=== PATIENT | female | born 1950 | race Caucasian/White ===

== ENCOUNTER 2017-11-27 17:13 | Inpatient (IN) | payer OTHER, BC ==
[2017-11-27] MEDS: ASPIRIN CHEWABLE 81 MG TABLET. PO ×2 (17:45→18:00)
[2017-11-27 18:00] LABS: ADD MAN DIFF? NO
[2017-11-27 18:10] LABS: BASO # 0.1 x10^3/uL (0.0-0.2); BASO % 1 % (0-3); EOS # 0.3 x10^3/uL (0.0-0.7); EOS % 4 % (0-3); HEMATOCRIT 42.7 % (36.0-47.0); HEMOGLOBIN 14.2 g/dL (12.0-15.5); LYMPH # 2.7 x10^3/uL (1.0-4.8); LYMPH % 39 % (24-48); MEAN CORPUSCULAR HEMOGLOBIN 32 pg (25-35); MEAN CORPUSCULAR HGB CONC 33 g/dL (31-37); MEAN CORPUSCULAR VOLUME 97 fL (79-100); MONO # 0.5 x10^3/uL (0.0-1.1); MONO % 7 % (0-9); NEUT # 3.4 x10^3uL (1.8-7.7); NEUT % 49 % (31-73); PLATELET COUNT 342 x10^3/uL (140-400); RED BLOOD COUNT 4.42 x10^6/uL (3.50-5.40); RED CELL DISTRIBUTION WIDTH 13.7 % (11.5-14.5); WHITE BLOOD COUNT 6.9 x10^3/uL (4.0-11.0)
[2017-11-27 19:08] LABS: ANION GAP 10 (6-14); BLOOD UREA NITROGEN 18 mg/dL (7-20); BUN/CREATININE RATIO 16 (6-20); CALCIUM 9.2 mg/dL (8.5-10.1); CARBON DIOXIDE 26 mmol/L (21-32); CHLORIDE 108 mmol/L (98-107); CREATININE 1.1 mg/dL (0.6-1.0); GFR 49.7; GLUCOSE 105 mg/dL (70-99); POTASSIUM 4.5 mmol/L (3.5-5.1); SODIUM 144 mmol/L (136-145)
[2017-11-27 19:13] LABS: ALBUMIN 3.5 g/dL (3.4-5.0); ALBUMIN/GLOBULIN RATIO 0.9 (1.0-1.7); ALK PHOS 67 U/L (46-116); ALT (SGPT) 12 U/L (14-59); AST (SGOT) 15 U/L (15-37); TOTAL BILIRUBIN 0.2 mg/dL (0.2-1.0); TOTAL PROTEIN 7.3 g/dL (6.4-8.2)
[2017-11-27 19:13] LABS: TROPONINI < 0.017 ng/mL (0.000-0.055)
[2017-11-27 19:32] LABS: NT-PRO BNP 105 pg/mL (0-124)
[2017-11-27] MEDS ORDERED: ONDANSETRON PF 4 MG/2 ML VIAL. IV (21:15)
[2017-11-27] MEDS ORDERED: KETOROLAC 30 MG/ML INJ. IV (21:15)
[2017-11-27] MEDS: ATORVASTATIN CALCIUM 10 MG TABLET. PO (23:43)
[2017-11-28 08:24] LABS: TROPONINI < 0.017 ng/mL (0.000-0.055)
[2017-11-28] MEDS: metFORMIN 500 MG TABLET PO ×2 (08:56→18:07)
[2017-11-28] MEDS: LOSARTAN POTASSIUM 50 MG TABLET. PO (08:56)
[2017-11-28] MEDS: FLU VACC QS2017-18 (36MOS+)/PF 0.5 ML SYRINGE. VAX IM (08:58)
[2017-11-28] MEDS ORDERED: INFLUENZA VAX SCREEN BY RX. MC (09:00)
[2017-11-28 10:17] LABS: ADD MAN DIFF? NO
[2017-11-28 10:31] LABS: ALBUMIN 3.1 g/dL (3.4-5.0); ALK PHOS 55 U/L (46-116); ALT (SGPT) 11 U/L (14-59); ANION GAP 8 (6-14); AST (SGOT) 12 U/L (15-37); BLOOD UREA NITROGEN 17 mg/dL (7-20); BUN/CREATININE RATIO 17 (6-20); CALCIUM 8.5 mg/dL (8.5-10.1); CARBON DIOXIDE 26 mmol/L (21-32); CHLORIDE 109 mmol/L (98-107); GFR 55.5; GLUCOSE 108 mg/dL (70-99); POTASSIUM 4.7 mmol/L (3.5-5.1); SODIUM 143 mmol/L (136-145); TOTAL BILIRUBIN 0.3 mg/dL (0.2-1.0); TOTAL PROTEIN 6.2 g/dL (6.4-8.2)
[2017-11-28 10:32] LABS: BASO % 1 % (0-3); EOS # 0.3 x10^3/uL (0.0-0.7); EOS % 7 % (0-3); HEMATOCRIT 38.1 % (36.0-47.0); HEMOGLOBIN 12.5 g/dL (12.0-15.5); LYMPH # 1.8 x10^3/uL (1.0-4.8); LYMPH % 39 % (24-48); MEAN CORPUSCULAR HEMOGLOBIN 32 pg (25-35); MEAN CORPUSCULAR HGB CONC 33 g/dL (31-37); MEAN CORPUSCULAR VOLUME 96 fL (79-100); MONO # 0.4 x10^3/uL (0.0-1.1); MONO % 8 % (0-9); NEUT # 2.1 x10^3uL (1.8-7.7); NEUT % 45 % (31-73); PLATELET COUNT 286 x10^3/uL (140-400); RED BLOOD COUNT 3.96 x10^6/uL (3.50-5.40); RED CELL DISTRIBUTION WIDTH 13.3 % (11.5-14.5); WHITE BLOOD COUNT 4.6 x10^3/uL (4.0-11.0)
[2017-11-28] MEDS: ASPIRIN ENTERIC COATED 325 MG TABLET.DR. PO (18:07)
[2017-11-28] MEDS: ATORVASTATIN CALCIUM 10 MG TABLET. PO (20:58)
[2017-11-28] MEDS ORDERED: NON FORMULARY ITEM (Lovastatin 20 MG) PO (21:00)
[2017-11-28 21:07] LABS: POC GLUCOSE 155 mg/dL (70-99)
[2017-11-29 05:58] LABS: ADD MAN DIFF? NO
[2017-11-29 06:04] LABS: BASO % 1 % (0-3); EOS # 0.3 x10^3/uL (0.0-0.7); EOS % 6 % (0-3); HEMATOCRIT 37.4 % (36.0-47.0); HEMOGLOBIN 12.1 g/dL (12.0-15.5); LYMPH # 2.2 x10^3/uL (1.0-4.8); LYMPH % 37 % (24-48); MEAN CORPUSCULAR HEMOGLOBIN 31 pg (25-35); MEAN CORPUSCULAR HGB CONC 32 g/dL (31-37); MEAN CORPUSCULAR VOLUME 97 fL (79-100); MONO # 0.6 x10^3/uL (0.0-1.1); MONO % 10 % (0-9); NEUT # 2.7 x10^3uL (1.8-7.7); NEUT % 46 % (31-73); PLATELET COUNT 268 x10^3/uL (140-400); RED BLOOD COUNT 3.88 x10^6/uL (3.50-5.40); RED CELL DISTRIBUTION WIDTH 13.5 % (11.5-14.5); WHITE BLOOD COUNT 5.8 x10^3/uL (4.0-11.0)
[2017-11-29 06:44] LABS: ALBUMIN/GLOBULIN RATIO 0.9 (1.0-1.7); ALK PHOS 58 U/L (46-116); ALT (SGPT) 10 U/L (14-59); ANION GAP 7 (6-14); AST (SGOT) 8 U/L (15-37); BLOOD UREA NITROGEN 20 mg/dL (7-20); BUN/CREATININE RATIO 20 (6-20); CALCIUM 8.7 mg/dL (8.5-10.1); CARBON DIOXIDE 27 mmol/L (21-32); CHLORIDE 110 mmol/L (98-107); GFR 55.5; GLUCOSE 114 mg/dL (70-99); POTASSIUM 4.8 mmol/L (3.5-5.1); SODIUM 144 mmol/L (136-145); TOTAL BILIRUBIN 0.2 mg/dL (0.2-1.0); TOTAL PROTEIN 6.4 g/dL (6.4-8.2)
[2017-11-29] MEDS: ASPIRIN ENTERIC COATED 325 MG TABLET.DR. PO ×3 (08:00→12:07)
[2017-11-29] MEDS: metFORMIN 500 MG TABLET PO ×2 (08:00→11:48)
[2017-11-29] MEDS: LOSARTAN POTASSIUM 50 MG TABLET. PO ×2 (08:10→12:07)
[2017-11-29] MEDS ORDERED: MIDAZOLAM HCL/PF 2 MG/2 ML VIAL. (09:26)
[2017-11-29] MEDS ORDERED: fentaNYL PF VIAL 100 MCG/2 ML VIAL (09:26)
[2017-11-29] MEDS ORDERED: NITROGLYCERIN 200 MCG/2 ML SYRINGE FOR CATH/VASC LAB. ×2 (09:27→10:21)
[2017-11-29] MEDS ORDERED: HEPARIN for IV BOLUS 10,000 UNIT/10 ML VIAL. (09:27)
[2017-11-29] MEDS ORDERED: VERAPAMIL 5 MG/2 ML VIAL. (09:27)
[2017-11-29] MEDS ORDERED: IOHEXOL 300 MG/ML 100ML VIAL. ×2 (09:38→10:18)
[2017-11-29] MEDS ORDERED: LIDOCAINE 2% 20 ML VIAL. (09:38)
[2017-11-29] MEDS: MIDAZOLAM HCL/PF 2 MG/2 ML VIAL. IV (09:45)
[2017-11-29] MEDS: IOHEXOL 300 MG/ML 50 ML VIAL. IART (09:45)
[2017-11-29] MEDS: LIDOCAINE 2% 20 ML VIAL. IJ (09:45)
[2017-11-29] MEDS: VERAPAMIL 5 MG/2 ML VIAL. IART (09:45)
[2017-11-29] MEDS: HEPARIN for IV BOLUS 10,000 UNIT/10 ML VIAL. IART (09:45)
[2017-11-29] MEDS: NITROGLYCERIN 200 MCG/2 ML SYRINGE FOR CATH/VASC LAB. IART (09:45)
[2017-11-29] MEDS ORDERED: diphenhydrAMINE 50 MG/ML VIAL (09:54)
[2017-11-29] MEDS ORDERED: BIVALIRUDIN 250 MG VIAL. IV (10:10)
[2017-11-29] MEDS: diphenhydrAMINE 50 MG/ML VIAL IVP (10:15)
[2017-11-29] MEDS: BIVALIRUDIN 250 MG VIAL. IV (10:26)
[2017-11-29] MEDS ORDERED: PRASUGREL 10 MG TABLET. (10:29)
[2017-11-29] MEDS: fentaNYL PF VIAL 100 MCG/2 ML VIAL IV (10:30)
[2017-11-29] MEDS: PRASUGREL 10 MG TABLET. PO ×3 (10:35→12:07)
[2017-11-29] MEDS ORDERED: ACETAMINOPHEN 325 MG TABLET. PO (10:45)
[2017-11-29] MEDS ORDERED: NITROGLYCERIN SUBLINGUAL 0.4 MG BOTTLE OF 25. SL (10:45)
[2017-11-29] MEDS ORDERED: fentaNYL PF VIAL 100 MCG/2 ML VIAL IV (10:45)
[2017-11-29] MEDS: METOPROLOL TART IMMED RELEASE 25 MG TABLET. PO ×2 (11:00→20:28)
[2017-11-29] MEDS ORDERED: ONDANSETRON PF 4 MG/2 ML VIAL. IV (12:00)
[2017-11-29] MEDS ORDERED: ACETAMINOPHEN 500 MG TABLET PO (12:00)
[2017-11-29] MEDS: hydrALAZINE 20 MG/ML VIAL. IVP ×3 (12:18→20:29)
[2017-11-29] MEDS: IV 1/2 NORMAL SALINE 1,000 ML IV (12:21)
[2017-11-29] MEDS: FAMOTIDINE 20 MG/2 ML VIAL IVP (13:08)
[2017-11-29] MEDS: methylPREDNISolone SOD SUCC PF 125 MG/2 ML VIAL. IV (13:10)
[2017-11-29] MEDS: NAPROXEN 500 MG TABLET PO (14:06)
[2017-11-29] MEDS: ATORVASTATIN CALCIUM 10 MG TABLET. PO (20:28)
[2017-11-29 20:39] LABS: POC GLUCOSE 314 mg/dL (70-99)
[2017-11-29] MEDS: INSULIN ASPART 300 UNITS/3 ML INSULN.PEN SQ (21:42)
[2017-11-30 06:18] LABS: BASO % 0 % (0-3); EOS % 0 % (0-3); HEMATOCRIT 39.4 % (36.0-47.0); LYMPH # 0.8 x10^3/uL (1.0-4.8); LYMPH % 7 % (24-48); MEAN CORPUSCULAR HEMOGLOBIN 31 pg (25-35); MEAN CORPUSCULAR HGB CONC 33 g/dL (31-37); MEAN CORPUSCULAR VOLUME 94 fL (79-100); MONO # 0.4 x10^3/uL (0.0-1.1); MONO % 4 % (0-9); NEUT # 9.4 x10^3uL (1.8-7.7); NEUT % 89 % (31-73); PLATELET COUNT 299 x10^3/uL (140-400); RED BLOOD COUNT 4.17 x10^6/uL (3.50-5.40); RED CELL DISTRIBUTION WIDTH 13.2 % (11.5-14.5); WHITE BLOOD COUNT 10.6 x10^3/uL (4.0-11.0)
[2017-11-30 06:29] LABS: ADD MAN DIFF? YES
[2017-11-30 06:37] LABS: ALBUMIN 3.4 g/dL (3.4-5.0); ALBUMIN/GLOBULIN RATIO 0.9 (1.0-1.7); ALK PHOS 63 U/L (46-116); ALT (SGPT) 11 U/L (14-59); ANION GAP 11 (6-14); AST (SGOT) 13 U/L (15-37); BLOOD UREA NITROGEN 23 mg/dL (7-20); BUN/CREATININE RATIO 21 (6-20); CALCIUM 9.4 mg/dL (8.5-10.1); CARBON DIOXIDE 23 mmol/L (21-32); CHLORIDE 107 mmol/L (98-107); CHOLESTEROL 190 mg/dL (0-200); CHOLESTEROL/HDL RATIO 2.2; CREATININE 1.1 mg/dL (0.6-1.0); GFR 49.7; GLUCOSE 171 mg/dL (70-99); HDLC 85 mg/dL (40-60); LDLC 97 mg/dL (0-100); NON-HDL CHOLESTEROL 105 mg/dL (0-129); POTASSIUM 4.7 mmol/L (3.5-5.1); SODIUM 141 mmol/L (136-145); TOTAL BILIRUBIN 0.2 mg/dL (0.2-1.0); TOTAL PROTEIN 7.1 g/dL (6.4-8.2); TRIGLYCERIDES 42 mg/dL (0-150); VLDLC 8 mg/dL (0-40)
[2017-11-30] MEDS: ASPIRIN ENTERIC COATED 325 MG TABLET.DR. PO ×2 (08:00→09:11)
[2017-11-30 08:09] LABS: POC GLUCOSE 161 mg/dL (70-99)
[2017-11-30] MEDS: METOPROLOL TART IMMED RELEASE 25 MG TABLET. PO (09:12)
[2017-11-30] MEDS: LOSARTAN POTASSIUM 50 MG TABLET. PO (09:12)
[2017-11-30] MEDS: PRASUGREL 10 MG TABLET. PO (09:13)
[2017-11-30 09:20] LABS: % BASOS 1 % (0-3); % LYMPHS 10 % (24-48); % MONOS 1 % (0-10); % SEGS 88 % (35-66)
[2017-11-30 09:21] LABS: PLT ESTIMATE ADEQUATE (ADEQUATE)
[2017-11-30] MEDS ORDERED: SUMAtriptan SUCCINATE 25 MG TABLET PO (11:45)
[2017-11-30] MEDS ORDERED: DEXTROSE 50% 25 GM / 50ML DISP.SYRIN. IV (11:45)
[2017-11-30 11:59] LABS: POC GLUCOSE 105 mg/dL (70-99)
[2017-11-30] MEDS: INSULIN ASPART 300 UNITS/3 ML INSULN.PEN SQ (12:30)
== END 2017-11-30 16:35 | disposition home or self-care (01) | DRG 247 ==
LOC: ER 17:13 → 2 NORTH 19:35
PROC: 027034Z Dilation of Coronary Artery, One Artery with Drug-eluting Intraluminal Device, Percutaneous Approach (ICD-10-PCS; principal; 2017-11-29)
PROC: 4A023N7 Measurement of Cardiac Sampling and Pressure, Left Heart, Percutaneous Approach (ICD-10-PCS; 2017-11-29)
PROC: B2111ZZ Fluoroscopy of Multiple Coronary Arteries using Low Osmolar Contrast (ICD-10-PCS; 2017-11-29)
PROC: B2151ZZ Fluoroscopy of Left Heart using Low Osmolar Contrast (ICD-10-PCS; 2017-11-29)
DX: I25.110 Atherosclerotic heart disease of native coronary artery with unstable angina pectoris (principal); E11.9 Type 2 diabetes mellitus without complications; E66.9 Obesity, unspecified; E78.00 Pure hypercholesterolemia, unspecified; E78.5 Hyperlipidemia, unspecified; G47.33 Obstructive sleep apnea (adult) (pediatric); I10 Essential (primary) hypertension; I16.0 Hypertensive urgency; Z79.84 Long term (current) use of oral hypoglycemic drugs; Z68.38 Body mass index [BMI] 38.0-38.9, adult; Z82.49 Family history of ischemic heart disease and other diseases of the circulatory system; Z90.49 Acquired absence of other specified parts of digestive tract; Z90.710 Acquired absence of both cervix and uterus; Z98.61 Coronary angioplasty status; Z88.8 Allergy status to other drugs, medicaments and biological substances; Z88.5 Allergy status to narcotic agent
CPT/HCPCS: 36415; 70450; 71045; 80053; 80061; 82962; 83880; 84484; 85007; 85025; 90686; 92928; 93005; 93306; 93458; 99152; 99153; 99285; 99285-25; C1713; C1769; C1887; C1892; G0269; J0360; J0583; J1200; J1644; J1815; J2250; J2930; J3010; J3490; Q9967; S0028

== ENCOUNTER → 2019-01-16 | Outpatient (CLI) | payer OTHER ==
[2017-11-30 15:39] VITALS: BP 166/61
[~2019-01-16] MED LIST: AMLO1TAB2; ASPI325T11 PO; ATOR10TA PO; HYDR12.58; IRBE150T; LIRA0.6P; LOSA100T14 PO; LOVA20TA2 PO; METF500T16 PO; METO37.5 PO; PRAS10TA9 PO
--- NOTE | 2019-01-16 14:50 | CARD ---
MR#: [id number] Date of Study: 01/16/2019 Ordering Physician: MARK VALDEZ, Referring Physician: MARK VALDEZ Tech: Saar Gonzalez RDCS APPROVED REPORT EXAM: Two-dimensional and M-mode echocardiogram with Doppler and color Doppler. Other Information Quality : AverageHR: 60bpm Rhythm : NSR INDICATION CAD 2D DIMENSIONS RVDd3.1 (2.9-3.5cm)Left Atrium(2D)3.3 (1.6-4.0cm) IVSd1.6 (0.7-1.1cm)Aortic Root(2D)2.7 (2.0-3.7cm) LVDd4.0 (3.9-5.9cm)LVOT Diameter2.0 (1.8-2.4cm) PWd0.8 (0.7-1.1cm)IVSs1.5 (0.8-1.2cm) LVDs2.3 (2.5-4.0cm)FS (%) 41.6 % PWs1.6 (0.8-1.2cm)SV51.0 ml LVEF(%)73.0 (>50%) M-Mode DIMENSIONS Left Atrium(MM)3.50 (2.5-4.0cm) Aortic Valve AoV Peak Molina.165.3cm/sAoV VTI33.7cm AO Peak GR.10.9mmHgLVOT Peak Molina.110.0cm/s LVOT VTI 27.78cmAO Mean GR.6mmHg ERIC (VMAX)1.19xu1UPF (VTI)1.65cm2 Mitral Valve MV E Uyzwbchi72.3cm/sMV DECEL ROPH481md MV A Tylzzjkr70.0cm/sMV SEK44ej E/A Ratio1.1MVA (PHT)2.91cm2 TDI E/Lateral E'6.0E/Medial E'7.5 Pulmonary Valve PV Peak Xvlsllgk59.0cm/sPV Peak Grad.3mmHg Tricuspid Valve TR P. Lysrbbuk087fg/sRAP OPYEKNPR9xbXi TR Peak Gr.14wwQlKTFI29gdJh LEFT VENTRICLE The left ventricle is normal size. There is moderate concentric left ventricular hypertrophy. The lef t ventricular systolic function is normal. The Ejection Fraction is 60-65%. There is normal LV segmen mary wall motion. Transmitral Doppler flow pattern is Grade II-pseudonormal filling dynamics. RIGHT VENTRICLE The right ventricle is normal size. There is normal right ventricular wall thickness. The right ventr icular systolic function is normal. ATRIA The left atrium size is normal. The right atrium size is normal. The interatrial septum is intact wit h no evidence for an atrial septal defect or patent foramen ovale as noted on 2-D or Doppler imaging. AORTIC VALVE The aortic valve is moderately calcified. Doppler and Color Flow revealed no significant aortic regur gitation. There is no significant aortic valvular stenosis. MITRAL VALVE The mitral valve is thickened but opens well. There is no evidence of mitral valve prolapse. There is no mitral valve stenosis. Doppler and Color-flow revealed trace to mild mitral regurgitation. TRICUSPID VALVE The tricuspid valve is normal in structure and function. Doppler and Color Flow revealed trace tricus pid regurgitation. There is mild pulmonary hypertension. The PA pressure was estimated at 31 mmHg. Th ere is no tricuspid valve prolapse or vegetation. There is no tricuspid valve stenosis. PULMONIC VALVE Pulmonic valve not well visualized. GREAT VESSELS The aortic root is normal in size. The ascending aorta is normal in size. The IVC is normal in size a nd collapses >50% with inspiration. PERICARDIAL EFFUSION There is no evidence of significant pericardial effusion. Critical Notification Critical Value: No <Conclusion> The left ventricular systolic function is normal. The Ejection Fraction is 60-65%. There is normal LV segmental wall motion. Trace to mild mitral regurgitation. Trace tricuspid regurgitation. There is mild pulmonary hypertension. The PA pressure was estimated at 31 mmHg. There is no evidence of significant pericardial effusion. Signed by : Mark Valdez, Electronically Approved : 01/16/2019 14:49:30
== END | disposition home or self-care (01) ==
LOC: ECHO 13:09
PROVIDERS: ATTEND Internal Medicine Cardiovascular Disease
DX: I25.10 Atherosclerotic heart disease of native coronary artery without angina pectoris (principal); I27.20 Pulmonary hypertension, unspecified
CPT/HCPCS: 93306

== ENCOUNTER 2019-08-11 08:13 | Outpatient (CLI) | payer OTHER ==
[~2019-08-11] VITALS: Ht 157.5 cm; Wt 102.1 kg
[2019-08-11] VITALS (9 sets, daily range): BP systolic 97–145; BP diastolic 44–85
[2019-08-11] MEDS ORDERED: FLUT9.9S NS (08:44)
[2019-08-11 08:47] LABS: HEMATOCRIT 40.9 % (36.0-47.0); HEMOGLOBIN 13.7 g/dL (12.0-15.5); RED BLOOD COUNT 4.36 x10^6/uL (3.50-5.40); RED CELL DISTRIBUTION WIDTH 13.3 % (11.5-14.5); WHITE BLOOD COUNT 4.5 x10^3/uL (4.0-11.0)
[2019-08-11 08:54] LABS: CALCIUM 9.6 mg/dL (8.5-10.1); CREATININE 1.3 mg/dL (0.6-1.0); GFR 49.3
[2019-08-11 09:09] LABS: PROTHROMBIN TIME PATIENT 12.2 SEC (11.7-14.0)
[2019-08-11] MEDS ORDERED: LIDOCAINE 1% PF 2 ML VIAL. ONE (09:34)
[2019-08-11] MEDS ORDERED: IODIXANOL 320 MG/ML 100 ML VIAL. ONE (09:34)
[2019-08-11] MEDS ORDERED: VERAPAMIL 5 MG/2 ML VIAL. ONE (09:54)
[2019-08-11] MEDS ORDERED: fentaNYL PF VIAL 100 MCG/2 ML VIAL ONE (09:54)
[2019-08-11] MEDS ORDERED: MIDAZOLAM HCL/PF 2 MG/2 ML VIAL. ONE (09:54)
[2019-08-11] MEDS ORDERED: HEPARIN for IV BOLUS 10,000 UNIT/10 ML VIAL. ONE (09:54)
[2019-08-11] MEDS ORDERED: NITROGLYCERIN 200 MCG/2 ML SYRINGE FOR CATH/VASC LAB. ONE (09:55)
[2019-08-11] MEDS ORDERED: VERAPAMIL 5 MG/2 ML VIAL. IART ONE (10:30)
[2019-08-11] MEDS ORDERED: MIDAZOLAM HCL/PF 2 MG/2 ML VIAL. IV ONE (10:30)
[2019-08-11] MEDS ORDERED: IODIXANOL 320 MG/ML 100 ML VIAL. IART ONE (10:30)
[2019-08-11] MEDS ORDERED: LIDOCAINE 1% PF 2 ML VIAL. INJ ONE (10:30)
[2019-08-11] MEDS ORDERED: fentaNYL PF VIAL 100 MCG/2 ML VIAL IV ONE (10:30)
[2019-08-11] MEDS ORDERED: NITROGLYCERIN 200 MCG/2 ML SYRINGE FOR CATH/VASC LAB. IART ONE (10:30)
[2019-08-11] MEDS ORDERED: HEPARIN for IV BOLUS 10,000 UNIT/10 ML VIAL. IART ONE (10:30)
[2019-08-11] MEDS ORDERED: IV 1/2 NORMAL SALINE 1,000 ML IV SCH (10:53)
--- NOTE | 2019-08-11 10:53 | PDOC ---
MODERATE SEDATION ASSESSMENT RISKS/ALTERNATIVES Risks/Alternatives Risks and alternatives of this type of sedation and procedure discussed with: RISK/ALTERNATIVES: Patient H & P ON CHART H & P H & P on chart and reviewed for co-morbid conditions and appropriate labs. H&P ON CHART: Yes STATUS PREG STATUS ASSESSED: Yes MEDS/ALLERGIES REVIEWED Meds/Allergies Reviewed Medications and Allergies including time and route of recently administered narcotics and sedatives. MEDS/ALLERGIES REVIEWED: Yes ASA RATING ASA RATING: II AIRWAY ASSESSMENT Airway Assessment Airway patency, oral function limitations, presence of caps, crowns, dentures, partials, and ability to extend neck assessed. AIRWAY ASSESSMENT: Yes MALLAMPATI SCORE MALLAMPATI SCORE: II PRE-SEDATION ASSESSMENT PRE-SEDATION ASSESSMENT: Yes MARK LAMB MD Aug 11, 2019 10:53
[2019-08-11] MEDS ORDERED: NITROGLYCERIN SUBLINGUAL 0.4 MG BOTTLE OF 25. SL PRN (11:00)
--- NOTE | 2019-08-11 11:02 | CARD ---
MR#: [id number] Date of Study: 08/11/2019 Ordering Physician: MARK LAMB, Referring Physician: MARK LAMB Tech: WILLEM RODAS RTR APPROVED REPORT Technologist: WILLEM RODAS RTR Nurse: Radha Ho R.N. Procedure(s) performed: Left heart catheterization, selective coronary angiography and left ventricul ography via right transradial approach Fluoro time: 10.9 min Dose: 49 Gycm2 Contrast: 138cc Moderate sedation: 38 min INDICATION The indication(s) include : Chest pain and positive stress test. CSHA Clinical Frailty Scale CSHA Clinical Frailty Scale: Managing Well Heart Failure Heart Failure: No PROCEDURE NARRATIVE After explaining the risks, benefits and alternative options, informed consent was obtained from evelyn ent. Patient was brought to the cardiac [facility] and right wrist was prepped and draped in the usual fashion after confirming a positive modified Olman's test. Arterial access was obtained in the righ t radial artery and a 6 Ghanaian sheath was inserted. 6 Ghanaian JL 3.5 and 5 Ghanaian JR4 catheters were u sed to perform selective angiography of left and right coronary arteries. 6 Ghanaian pigtail catheter was used to perform left ventriculography. Patient tolerated the procedure well. Hemostasis was ach ieved using TR band. There were no immediate complications. The following findings were noted. FINDINGS 1. Hemodynamics: Left ventricular end-diastolic pressure of 12 mmHg. No pullback gradient across th e aortic valve. 2. Left ventriculography: Normal left ventricle systolic function with ejection fraction estimated at 60%. No significant mitral regurgitation seen. 3. Coronary angiography: a. The left main coronary artery arose from the left sinus of Valsalva, gave rise to the left anteri or descending, ramus intermedius and left circumflex arteries and did not show any significant stenos is. b. The left anterior descending artery did not show any significant stenosis. c. The left circumflex artery showed 30% stenosis in the proximal segment. d. The ramus intermedius artery showed 50% stenosis in the proximal segment. e. The right coronary artery was a dominant vessel arising from the right sinus of Valsalva that janak wed widely patent stent in the midsegment. Conclusion 1. Nonobstructive coronary artery disease involving ramus intermedius artery. The previously placed stent in the right coronary artery was patent. 2. Normal left ventricle systolic function with ejection fraction estimated at 60%. Signed by : Mark Lamb, Electronically Approved : 08/11/2019 11:01:54
--- NOTE | 2019-08-11 13:57 | NUR ---
Discharge Note: LEE ANN ROMERO Discharge instructions and discharge home medications reviewed with Patient and a copy given. All questions have been answered and understanding verbalized. The following instructions and handouts were given: Post moderate sedation, radial site care Discontinued lines and drains: Left FA IV dc'd and tip intact. Patient discharged to home with son via car.
== END 2019-08-11 13:45 | disposition home or self-care (01) ==
LOC: CCL 08:13
PROVIDERS: ATTEND Internal Medicine Cardiovascular Disease
DX: I25.10 Atherosclerotic heart disease of native coronary artery without angina pectoris (principal); I10 Essential (primary) hypertension; E78.5 Hyperlipidemia, unspecified; E11.9 Type 2 diabetes mellitus without complications; Z79.84 Long term (current) use of oral hypoglycemic drugs; Z90.49 Acquired absence of other specified parts of digestive tract; Z90.710 Acquired absence of both cervix and uterus; Z98.51 Tubal ligation status; Z88.6 Allergy status to analgesic agent; Z88.5 Allergy status to narcotic agent; Z88.8 Allergy status to other drugs, medicaments and biological substances; Z87.891 Personal history of nicotine dependence
CPT/HCPCS: 36415; 80048; 85027; 85610; 93458; 99152; 99153; C1769; C1892; J1644; J2250; J3010; J3490; Q9967

== ENCOUNTER → 2020-05-01 | Outpatient (CLI) | payer MEDICARE ==
[2019-08-11 13:25] VITALS: BP 128/85
[~2020-05-01] MED LIST changes: +FLUT9.9S NS
--- NOTE | 2020-05-01 15:47 | CARD ---
MR#: [id number] Date of Study: 05/01/2020 Ordering Physician: MARK LAMB, Referring Physician: MARK LAMB Tech: Asia Somers RDCS APPROVED REPORT EXAM: Two-dimensional and M-mode echocardiogram with Doppler and color Doppler. Other Information Quality : Good INDICATION Cardiac Disease: CAD 2D DIMENSIONS RVDd3.4 (2.9-3.5cm)Left Atrium(2D)3.3 (1.6-4.0cm) IVSd1.0 (0.7-1.1cm)Aortic Root(2D)2.6 (2.0-3.7cm) LVDd4.2 (3.9-5.9cm)LVOT Diameter2.1 (1.8-2.4cm) PWd0.9 (0.7-1.1cm)LVDs2.0 (2.5-4.0cm) FS (%) 30.0 %SV67.0 ml LVEF(%)60.0 (>50%) Aortic Valve AoV Peak Molina.145.4cm/sAoV VTI32.4cm AO Peak GR.8.5mmHgLVOT Peak Molina.97.8cm/s LVOT VTI 25.28cmAO Mean GR.4mmHg ERIC (VMAX)2.09dq5WJS (VTI)2.66cm2 Mitral Valve MV E Zszxvuhy68.6cm/sMV DECEL SYHU350pt MV A Bvpqsgkl833.2cm/sMV DRJ09om E/A Ratio0.8MVA (PHT)4.20cm2 TDI E/Lateral E'6.3E/Medial E'12.5 Tricuspid Valve TR P. Beserinj098lr/sRAP MIVRXAAA3lxMs TR Peak Gr.02yoRyIVCU47deIf Pulmonary Vein S1 Bxuokfop70.8cm/sD2 Hedpfavs27.7cm/s LEFT VENTRICLE The left ventricle is normal size. There is normal left ventricular wall thickness. The left ventricu lar systolic function is normal and the ejection fraction is within normal range. The Ejection Fracti on is 55-60%. There is normal LV segmental wall motion. Transmitral Doppler flow pattern is Grade I-a bnormal relaxation pattern. RIGHT VENTRICLE The right ventricle is normal size. The right ventricular systolic function is normal. ATRIA The left atrium size is normal. The right atrium size is normal. The interatrial septum is intact wit h no evidence for an atrial septal defect or patent foramen ovale as noted on 2-D or Doppler imaging. AORTIC VALVE The aortic valve is calcified but opens well. Doppler and Color Flow revealed no significant aortic r egurgitation. There is no significant aortic valvular stenosis. MITRAL VALVE The mitral valve is calcified but opens well. There is no evidence of mitral valve prolapse. There is no mitral valve stenosis. Doppler and Color-flow revealed trace to mild mitral regurgitation. TRICUSPID VALVE The tricuspid valve is normal in structure and function. Doppler and Color Flow revealed trace to mil d tricuspid regurgitation. The PA pressure was estimated at 42 mmHg. There is no tricuspid valve sten osis. PULMONIC VALVE The pulmonic valve is not well visualized. Doppler and Color Flow revealed no pulmonic valvular regur gitation. There is no pulmonic valvular stenosis. GREAT VESSELS The aortic root is normal in size. The ascending aorta is normal in size. The IVC is normal in size a nd collapses >50% with inspiration. PERICARDIAL EFFUSION There is no evidence of significant pericardial effusion. Critical Notification Critical Value: No <Conclusion> The left ventricle is normal size. The left ventricular systolic function is normal and the ejection fraction is within normal range. The Ejection Fraction is 55-60%. Doppler and Color Flow revealed no significant aortic regurgitation. There is no significant aortic valvular stenosis. Doppler and Color-flow revealed trace to mild mitral regurgitation. Doppler and Color Flow revealed trace to mild tricuspid regurgitation. The PA pressure was estimated at 42 mmHg. Signed by : Juan Francisco Ramsey MD Electronically Approved : 05/01/2020 15:47:18
== END | disposition home or self-care (01) ==
LOC: ECHO 13:53
PROVIDERS: ATTEND Internal Medicine Cardiovascular Disease
DX: I08.3 Combined rheumatic disorders of mitral, aortic and tricuspid valves (principal); I25.10 Atherosclerotic heart disease of native coronary artery without angina pectoris
CPT/HCPCS: 93306

== ENCOUNTER → 2021-05-14 | Outpatient (CLI) | payer MEDICARE ==
[2019-08-11 13:25] VITALS: BP 128/85
--- NOTE | 2021-05-15 13:55 | CARD ---
MR#: [id number] Date of Study: 05/14/2021 Ordering Physician: MARK LAMB, Referring Physician: MARK LAMB, Tech: Virgen Mesa [facility] APPROVED REPORT EXAM: Two-dimensional and M-mode echocardiogram with Doppler and color Doppler. Other Information Quality : AverageHR: 55bpm INDICATION Cardiac Disease: CAD RISK FACTORS Hypertension Hyperlipidemia Diabetes Smoking 2D DIMENSIONS RVDd4.0 (2.9-3.5cm)Left Atrium(2D)3.0 (1.6-4.0cm) IVSd1.1 (0.7-1.1cm)Aortic Root(2D)3.0 (2.0-3.7cm) LVDd4.7 (3.9-5.9cm)LVOT Diameter2.1 (1.8-2.4cm) PWd0.9 (0.7-1.1cm)LVDs2.8 (2.5-4.0cm) FS (%) 40.6 %SV71.7 ml LVEF(%)71.4 (>50%) Aortic Valve AoV Peak Molina.159.9cm/sAoV VTI34.3cm AO Peak GR.10.2mmHgLVOT Peak Molina.104.2cm/s LVOT VTI 26.00cmAO Mean GR.5mmHg ERIC (VMAX)1.90hj3MLO (VTI)2.52cm2 Mitral Valve MV E Yuwruimv06.2cm/sMV DECEL UIQM133eb MV A Rfuudnpz73.8cm/sMV OWY35tz E/A Ratio0.8MVA (PHT)2.46cm2 TDI E/Lateral E'6.2E/Medial E'7.8 Pulmonary Valve PV Peak Junfuphz23.0cm/sPV Peak Grad.3mmHg Tricuspid Valve TR P. Xrmzgyxl069om/sRAP JMOBFMGP7urIc TR Peak Gr.48okCcYQVE87suCq Pulmonary Vein S1 Celdguuz41.1cm/sD2 Xlcwjsrl00.2cm/s PVa idgbbeqa827qdxv LEFT VENTRICLE The left ventricle is normal size. There is borderline to mild concentric left ventricular hypertroph y. The left ventricular systolic function is normal and the ejection fraction is within normal range. The Ejection Fraction is 55-60%. There is normal LV segmental wall motion. Transmitral Doppler flow pattern is Grade I-abnormal relaxation pattern. RIGHT VENTRICLE The right ventricle is normal size. There is normal right ventricular wall thickness. The right ventr icular systolic function is normal. ATRIA The left atrium size is normal. The right atrium size is normal. The interatrial septum is intact wit h no evidence for an atrial septal defect or patent foramen ovale as noted on 2-D or Doppler imaging. AORTIC VALVE The aortic valve is thickened but opens well. Doppler and Color Flow revealed no significant aortic r egurgitation. Calculated aortic valve area is 2.54 cm2 with maximum pressure gradient of 13 mmHg and mean pressure gradient of 5 mmHg. There is no significant aortic valvular stenosis. MITRAL VALVE The mitral valve is normal in structure and function. There is no evidence of mitral valve prolapse. There is no mitral valve stenosis. Doppler and Color-flow revealed trace mitral regurgitation. TRICUSPID VALVE The tricuspid valve is normal in structure and function. Doppler and Color Flow revealed trace tricus pid regurgitation with an estimated PAP of 35 mmHg. There is no tricuspid valve stenosis. PULMONIC VALVE The pulmonic valve is not well visualized. Doppler and Color Flow revealed no pulmonic valvular regur gitation. There is no pulmonic valvular stenosis. GREAT VESSELS The aortic root is normal in size. The IVC is normal in size and collapses >50% with inspiration. PERICARDIAL EFFUSION There is no evidence of significant pericardial effusion. Critical Notification Critical Value: No <Conclusion> The left ventricular systolic function is normal and the ejection fraction is within normal range. Th e Ejection Fraction is 55-60%. There is normal LV segmental wall motion. Signed by : Tino Rivera, Electronically Approved : 05/15/2021 13:55:28
== END ==
LOC: ECHO 13:57
PROVIDERS: ATTEND Internal Medicine Cardiovascular Disease
DX: I51.7 Cardiomegaly (principal); I25.10 Atherosclerotic heart disease of native coronary artery without angina pectoris
CPT/HCPCS: 93306